=== PATIENT | male | born 1970 ===

== ENCOUNTER 2020-02-03 05:24 | Emergency (ER) | payer SELFPAY ==
[~2020-02-03] VITALS: Ht 160 cm; Wt 68.0 kg
[2020-02-03 05:25] VITALS: Ht 160 cm; Wt 68.0 kg
[2020-02-03 07:04] VITALS: BP 146/93
== END 2020-02-03 07:04 | disposition home or self-care (01) ==
LOC: ED 05:24
DX: U07.1 COVID-19 (principal)